=== PATIENT | male | born 1975 | race African-American/Black ===

== ENCOUNTER 2018-09-21 21:03 | Emergency (ER) | payer MEDICAID ==
[~2018-09-21] VITALS: Ht 193 cm; Wt 105.0 kg
[2018-09-21] MEDS ORDERED: ONDANSETRON HCL 4MG/2ML INJ IV STA (21:28)
[2018-09-21] MEDS ORDERED: MORPHINE SULFATE 4 MG/ML CPJ (NOT FOR IM USE) IV STA (21:28)
[2018-09-21] MEDS ORDERED: VANCOMYCIN 1 G PREMIX 200 ML IV ONE (21:30)
[2018-09-21] MEDS ORDERED: PIPERACILLIN/TAZ 3.375G PREMIX 50 ML IV ONE (21:30)
[2018-09-21 22:29] LABS: CHLORIDE 105 mEq/L (98-107)
[2018-09-21 22:31] LABS: BASOPHILS % 0.8 % (0.0-2.0); EOSINOPHILS % 1.3 % (0.0-5.0); HEMATOCRIT. 32.2 % (42.0-52.0); HEMOGLOBIN. 10.6 g/dL (14.0-18.0); LYMPHOCYTES % 35.2 % (20.0-50.0); MEAN CORPUSCULAR HEMOGLOBIN 28.3 pg (28.0-32.0); MEAN CORPUSCULAR VOLUME 85.9 fL (80.0-94.0); MEAN PLATELET VOLUME 7.6 fl (7.4-10.4); MONOCYTES % 10.8 % (2.0-8.0); NEUTROPHILS % 51.9 % (40.0-76.0); PLATELET 335 x1000/uL (130-400); RED BLOOD CELL COUNT 3.75 mill/uL (4.7-6.1)
[2018-09-21 22:33] LABS: ETHANOL BLOOD < 10 mg/dL
[2018-09-21 22:35] LABS: CLARITY URINE CLEAR (CLEAR); COLOR URINE YELLOW (YELLOW); KETONES URINE TRACE (NEGATIVE); LEUKOCYTE ESTERASE URINE 2+ (NEGATIVE); NITRITE URINE NEGATIVE (NEGATIVE); OCCULT BLOOD URINE NEGATIVE (NEGATIVE); PH URINE 5.5 (4.5-8.0); PROTEIN URINE NEGATIVE (NEGATIVE); SPECIFIC GRAVITY URINE 1.019 (1.005-1.030); UROBILINOGEN URINE 0.2 E.U./dL (0.2-1.0)
[2018-09-21 22:35] LABS: INR 0.9; PROTHROMBIN TIME 9.5 sec (9.6-11.0)
[2018-09-21 23:01] LABS: *AMPHETAMINES SCREEN URINE NEGATIVE (NEGATIVE); *BARBITURATES SCREEN URINE NEGATIVE (NEGATIVE); *BENZODIAZEPINES SCREEN URINE NEGATIVE (NEGATIVE); *COCAINE SCREEN URINE NEGATIVE (NEGATIVE); METHADONE URINE SCREEN NEGATIVE (NEGATIVE)
[2018-09-21 23:03] LABS: CANNABINOID URINE SCREEN PRESUMTIVE POSITIVE (NEGATIVE); OPIATES URINE SCREEN NEGATIVE (NEGATIVE); PHENCYCLIDINE URINE SCREEN NEGATIVE (NEGATIVE)
[2018-09-22 01:25] VITALS: BP 110/55
== END 2018-09-22 02:56 | disposition home or self-care (01) ==
LOC: ER 21:03 → EDBEDREQ 09-22 00:02 → ER 09-22 02:56 → CANBEDREQ 09-22 05:30
DX: T81.41XA Infection following a procedure, superficial incisional surgical site, initial encounter (principal); B99.8 Other infectious disease; T81.31XA Disruption of external operation (surgical) wound, not elsewhere classified, initial encounter; L76.22 Postprocedural hemorrhage of skin and subcutaneous tissue following other procedure; Z87.828 Personal history of other (healed) physical injury and trauma; Y83.8 Other surgical procedures as the cause of abnormal reaction of the patient, or of later complication, without mention of misadventure at the time of the procedure; Y92.018 Other place in single-family (private) house as the place of occurrence of the external cause
CPT/HCPCS: 36415; 74176; 80053; 80305; 80320; 81003; 83605; 84145; 84484; 85025; 85610; 87040; 87086; 96365; 96367; 96375; 99284; J2270; J2405; J2543; J3370; G0480